=== PATIENT | female | born 1945 | race Two or more races ===

== ENCOUNTER 2024-09-05 10:32 | Emergency (ER) | payer OTHER ==
[~2024-09-05] VITALS: Ht 152.4 cm; Wt 46.7 kg
[2024-09-05] MEDS ORDERED: GRALISE600 MG (10:40)
[2024-09-05] MEDS ORDERED: KETOROLAC TROMETHAMINE 30 MG VIAL IM ONE (11:45)
[2024-09-05] MEDS ORDERED: KETOROLAC TROMETHAMINE 30 MG VIAL ONE (11:59)
== END 2024-09-05 16:26 ==
LOC: ER 10:34
DX: S29.8XXA Other specified injuries of thorax, initial encounter (principal); W22.8XXA Striking against or struck by other objects, initial encounter; Y93.E9 Activity, other interior property and clothing maintenance; Y92.012 Bathroom of single-family (private) house as the place of occurrence of the external cause; Z88.0 Allergy status to penicillin; E78.00 Pure hypercholesterolemia, unspecified
CPT/HCPCS: 71110; 96372; 99283; J1885